=== PATIENT | female | born 1955 | race Caucasian/White ===

== ENCOUNTER 2022-03-18 14:22 | Emergency (ER) | payer MEDICARE ==
[~2022-03-18] VITALS: Ht 165.1 cm; Wt 100.0 kg
[2022-03-18 14:54] VITALS: BP 151/94
[2022-03-18] MEDS ORDERED: CYCL-1 PO (19:09)
== END 2022-03-18 19:45 | disposition home or self-care (01) ==
LOC: ER 14:23
DX: Z04.3 Encounter for examination and observation following other accident (principal); W18.39XA Other fall on same level, initial encounter; Y93.89 Activity, other specified; Y92.89 Other specified places as the place of occurrence of the external cause; Y99.8 Other external cause status
CPT/HCPCS: 70450; 72125; 73030; 99284

== ENCOUNTER 2024-11-22 08:18 | Outpatient (CLI) | payer MEDICARE ==
[~2024-11-22 08:18] MED LIST: CYCL-1 PO
--- NOTE | 2024-11-22 09:40 | RADIOLOGY REPORT ---
CLINICAL INFORMATION: 69 years old, Female; PAIN IN RIGHT SHOULDER. TECHNIQUE: Multisequence multiplanar MRI images of the right shoulder were obtained without contras t. COMPARISON: Radiographs dated 03/18/2022. FINDINGS: Acromioclavicular joint: There is moderate to marked acromioclavicular hypertrophy and moderate to ma rked edema. There is Type 2 acromion. Large amount of fluid in the subacromial / subdeltoid bursa. Rotator cuff tendons: Full-thickness complete tears of the supraspinatus and infraspinatus tendons fr om their insertions, with retraction of torn tendon fibers to the level of the glenohumeral joint. Mo derate to marked tendinosis of the distal subscapularis tendon without visualized tear. Teres minor t endon is intact. Biceps tendon: [id number] tendinosis of the proximal long head biceps tendon. Mild intrasubstan ce signal in the proximal long head biceps tendon just proximal to the level of the bicipital groove, possible longitudinal split tear. Labrum: Motion artifact limits evaluation of the labrum. Probable fraying of the superior labrum. Bones: No fracture or focal marrow contusion. Moderate arthritic changes of the glenohumeral joint wi th joint space narrowing marginal osteophytes. Superior subluxation of the humeral head relative to t he glenoid with narrowing of the acromial humeral interval secondary to the rotator cuff tear. Modera te glenohumeral joint effusion. Suspected loose body in the axillary recess measuring up to 6 mm. Muscles: Likely moderate fatty atrophy of the supraspinatus and infraspinatus muscles. Other: Motion artifact limits evaluation. IMPRESSION: 1. Motion limited study. 2. Full-thickness complete tears of the supraspinatus and infraspinatus tendons. 3. Tendinosis of the subscapularis tendon without visualized tear. 4. Tendinosis of the proximal long head biceps tendon with suspected longitudinal split tear just pro ximal to the level of the bicipital groove. 5. Moderate to marked acromioclavicular hypertrophy. 6. Moderate glenohumeral joint effusion with suspected loose body in the axillary recess. 7. Additional findings as detailed above.
== END 2024-11-22 23:59 | disposition home or self-care (01) ==
LOC: MRI02 08:18
PROVIDERS: ATTEND Family Medicine
DX: S43.011A Anterior subluxation of right humerus, initial encounter (principal); M25.511 Pain in right shoulder; M75.121 Complete rotator cuff tear or rupture of right shoulder, not specified as traumatic; M75.81 Other shoulder lesions, right shoulder; X58.XXXA Exposure to other specified factors, initial encounter; Y93.89 Activity, other specified; Y92.89 Other specified places as the place of occurrence of the external cause; Y99.8 Other external cause status; M89.8X1 Other specified disorders of bone, shoulder
CPT/HCPCS: 73221

== ENCOUNTER 2025-01-17 13:37 | Outpatient (CLI) | payer MEDICARE ==
--- NOTE | 2025-01-18 07:26 | RADIOLOGY REPORT ---
EXAM: CT BIOMETSET SHOULDER RIGHT HISTORY: OSTEOARTHRITIS RIGHT SHOULDER COMPARISON: None TECHNIQUE: Noncontrast axial CT images of the right shoulder were performed. Sagittal and coronal ref ormatted images were obtained. This CT exam was performed using one or more of the following dose red uction techniques: Automated exposure control, adjustment of the mA and/or kV according to patient si ze, or use of iterative reconstruction technique. CT Dose: CTDI volume is 24.44 mGy. Dose-length product is 545.56 mGy*cm. FINDINGS: There is no acute fracture or dislocation of the glenohumeral joint. There is moderate joint space na rrowing of glenohumeral joint with small humeral head osteophytes. There is a small joint effusion. T here is severe shortening of the acromial humeral distance with minimal fraying of the undersurface o f the acromion and superior margin of the humeral head. There is mild glenoid retroversion. Glenoid s tock appears within normal limits. There is joint space narrowing with fraying of the acromioclavicular joint with capsular thickening. There is bronchial thickening with scattered endobronchial secretions with atelectatic changes within the right middle lobe. Visualized soft tissues around markable. IMPRESSION: 1. No acute fracture of the right shoulder. 2. Moderate glenohumeral joint osteoarthrosis with small joint effusion 3. Severe rotator cuff atrophy with high riding humeral head 4. Moderate cromioclavicular joint osteoarthrosis 5. Chronic large airways disease with bronchial secretions and right middle lobe subsegmental atelect asis within the image lungs
== END 2025-01-17 23:59 | disposition home or self-care (01) ==
LOC: RAD 13:37
PROVIDERS: ATTEND Orthopaedic Surgery
DX: M19.011 Primary osteoarthritis, right shoulder (principal); M75.101 Unspecified rotator cuff tear or rupture of right shoulder, not specified as traumatic; M89.8X1 Other specified disorders of bone, shoulder; M25.411 Effusion, right shoulder
CPT/HCPCS: 73200